=== PATIENT | male | born 1960 | race Caucasian/White ===

== ENCOUNTER 2022-10-02 11:23 | Emergency (ER) | payer BC, SELFPAY ==
[2022-10-02 11:24] VITALS: BP 154/86; PULSE 100; RESP 16; TEMP 36.3; O2SAT 97; BMI 34.2
--- NOTE | 2022-10-02 12:00 | EX.ED.DYSGE1 ---
HPI <CHRISTINE Dickson - Last Filed: 10/02/22 13:01> History of Present Illness Chief Complaint: Cellulitis Narrative Narrative: Patient presenting today with concerns that he has cellulitis to his left lateral lower leg. He reports that last Tuesday he noticed what looks like a bug bite to his left lateral leg. He went to [place] with his family and was swimming in the ocean and on Tuesday noticed that the area was becoming more red, tender, and swollen. He went to urgent care where they prescribed him 300 mg clindamycin 4 times a day for 10 days. Today he noticed that the area has not improved and is becoming more painful and swollen. He called his PCP, Dr. George who advised him to come in for to the emergency department for evaluation. He reports a history of diabetes mellitus. He has not had any fevers or chills. PFSH <CHRISTINE Dickson - Last Filed: 10/02/22 13:01> [facility] Medical History High cholesterol Type II diabetes mellitus Home Medications doxycycline hyclate 100 mg capsule 100 mg PO BID 10 days #19 caps 10/02/22 [Rx Last Taken Unknown] Allergy/AdvReac Type Severity Reaction Status Date / Time No Known Allergies Allergy Verified 10/02/22 11:24 Social History Smoking Status: Never smoker ROS <CHRISTINE Dickson - Last Filed: 10/02/22 13:01> ROS ED Constitutional Constitutional ED: Denies chills or fever(s) Cardiovascular Cardiovascular: Denies chest pain Respiratory/Chest Respiratory/Chest: Denies cough or dyspnea Gastrointestinal Gastrointestinal: Denies abdominal pain, nausea or vomiting Musculoskeletal Musculoskeletal: Denies arthralgias or myalgias Integumentary Denies abscess or rash Neurologic Neurologic: Denies weakness EXAM <CHRISTINE Dickson - Last Filed: 10/02/22 13:01> Physical Exam Const Vital Signs: 10/02/22 11:24 Temperature 97.3 F L Temperature Source Temporal Pulse Rate 100 Respiratory Rate 16 Blood Pressure 154/86 H Blood Pressure Mean 108 Pulse Ox 97 Oxygen Delivery Method Room Air Positive well nourished, well developed and no apparent distress General Appearance ED: well developed HEENT Reports normocephalic and head/scalp atraumatic Mouth ED: Yes moist mucous membranes normal Eyes PERRL and EOMs intact bilaterally Neck full ROM and supple Chest Wall inspection of chest normal Resp normal respiratory effort and clear to auscultation bilaterally Cardio regular rate and regular rhythm GI soft to palpation, non-tender, non-distended and no masses Back/Spine normal ROM and normal to inspection Extremity normal to inspection and full ROM Extremity Narrative: Area of erythema and edema to the left lateral lower leg. Small scabbed wound to the area. There is no abscess. No lymphangitic streaking. Neuro oriented x3, CN's II-XII intact bilaterally, moves all extremities, no focal motor deficits and no sensory deficits noted Sensorium / Orientation: awake and alert Psych mental status grossly normal and thought process normal Skin no rashes or lesions noted and no wounds <Dr. Arnulfo Mendez MD - Last Filed: 10/02/22 12:38> Physical Exam Const Vital Signs: 10/02/22 11:24 Temperature 97.3 F L Temperature Source Temporal Pulse Rate 100 Respiratory Rate 16 Blood Pressure 154/86 H Blood Pressure Mean 108 Pulse Ox 97 Oxygen Delivery Method Room Air MDM <CHRISTINE Dickson - Last Filed: 10/02/22 13:01> [facility] Narrative Medical decision making narrative: Patient presenting today with concerns that his cellulitis has not improved after being on clindamycin since Tuesday. He has an area of cellulitis to his left lateral lower leg without any lymphangitic streaking or abscess formation. Labs obtained and are unremarkable. Given clindamycin does not have great coverage for MRSA in this area, we will change therapy to doxycycline and discontinue the clindamycin. He has been given first dose here and will be discharged home in stable condition. He is to follow-up with his PCP in 3 to 5 days and is to return for any worsening of his condition. He is comfortable with plan. Lab Data Attestation: I reviewed the patient's lab results. Labs: Laboratory Results - last 24 hr 10/02/22 11:55 WBC 8.2 RBC 4.60 Hgb 14.2 Hct 41.9 MCV 91.1 MCH 30.9 MCHC 33.9 RDW Std Deviation 42.5 RDW Coeff of Momo 12.7 Plt Count 202 MPV 9.8 Immature Gran % (Auto) 0.400 Neut % (Auto) 67.6 Lymph % (Auto) 20.0 [place] % (Auto) 9.5 Eos % (Auto) 2.0 Baso % (Auto) 0.5 Absolute Neuts (auto) 5.5 Absolute Lymphs (auto) 1.64 Nucleated RBC % 0 Sodium 135 L Potassium 3.6 Chloride 101 Carbon Dioxide 27.0 Anion Gap 7 BUN 16 Creatinine 0.98 Estim Creat Clear Calc 77.55 Est GFR (MDRD) Af Amer 101 Est GFR (MDRD) Non-Af 83 BUN/Creatinine Ratio 16.4 Glucose 245 H Calcium 8.8 <Dr. Arnulfo Mendez MD - Last Filed: 10/02/22 12:38> [facility] Lab Data Labs: Laboratory Results - last 24 hr 10/02/22 11:55 WBC 8.2 RBC 4.60 Hgb 14.2 Hct 41.9 MCV 91.1 MCH 30.9 MCHC 33.9 RDW Std Deviation 42.5 RDW Coeff of Momo 12.7 Plt Count 202 MPV 9.8 Immature Gran % (Auto) 0.400 Neut % (Auto) 67.6 Lymph % (Auto) 20.0 Jerauld % (Auto) 9.5 Eos % (Auto) 2.0 Baso % (Auto) 0.5 Absolute Neuts (auto) 5.5 Absolute Lymphs (auto) 1.64 Nucleated RBC % 0 Sodium 135 L Potassium 3.6 Chloride 101 Carbon Dioxide 27.0 Anion Gap 7 BUN 16 Creatinine 0.98 Estim Creat Clear Calc 77.55 Est GFR (MDRD) Af Amer 101 Est GFR (MDRD) Non-Af 83 BUN/Creatinine Ratio 16.4 Glucose 245 H Calcium 8.8 Treatment and Re-Evaluation Comments:: Seen and evaluated independently and in conjunction with physician physiotherapy assistant. Agree with notes above unless documented otherwise. Spontaneous onset of a red initially itchy and mostly painful area lateral aspect of his left lower extremity that started 3 to 4 days ago out of town, saw urgent care prescribed clindamycin has been on that for around 72 hours and the redness and pain has been worsening. No systemic symptoms. Exam: Tender not well-circumscribed area of erythema that is warm lateral aspect of the left knee. Is able to range the knee fully without difficulty although it is painful. No lymphangitis. No abscess. No palpable induration. Plan: Clindamycin clearly is not working he has been on it for 3 days. We will change it to better MRSA coverage, our current antibiogram shows Doxy as the best antibiotic for MRSA coverage and since this would cover strep as well, we will have him discontinue clindamycin, we discussed reasons to return but no indication for attempting incision and drainage at this time. Discharge Plan Triage Chief Complaint: Cellulitis ED Midlevel Provider: Tangela Balbuena ED Provider: Arnulfo Mendez Dx/Rx/DC Orders Clinical Impression: Cellulitis Instructions: Cellulitis Dc Prescriptions: New doxycycline hyclate 100 mg capsule 100 mg PO BID 10 Days Qty: 19 0RF Primary Care Provider: Dinesh George Referrals: Dinesh George MD [Primary Care Provider] - 3-5 Days Activity Restrictions/Additional Instructions: Taking antibiotics as directed and follow-up with your PCP in 3 to 5 days. Discontinue the clindamycin. Disposition Disposition: Home, Self Care Discharge Date/Time: 10/02/22 12:38
[2022-10-02 12:06] LABS: Absolute Lymphocyte Count 1.64 X10^3/uL (0.83-4.51); Absolute Neutrophil Count 5.5 X10^3/uL (2.0-7.7); Basophil# 0.04 X10^3/uL; Basophil% 0.5 % (0-1); Eosinophil# 0.16 X10^3/uL; Hematocrit 41.9 % (40-54); Hemoglobin 14.2 g/dL (13.0-16.5); Lymphocyte # 1.64 X10^3/ul (0.83-4.51); Mean Corp Hgb Conc 33.9 g/dL (32-36); Mean Corpuscular Hgb 30.9 pg (27.0-32.0); Mean Corpuscular Volume 91.1 fL (80-94); Mean Platelet Vol. 9.8 fl (6.2-12.0); Monocyte# 0.78 X10^3/uL; Monocyte% 9.5 % (0-10); NRBC Flagged by Analyzer 0 % (0-5); Neutrophil # 5.54 X10^3/uL (2.7-7.7); Neutrophil % 67.6 % (47-70); Platelet Count 202 K/mm3 (150-450); RBC Distribution Width CV 12.7 % (11.6-14.6); RBC Distribution Width SD 42.5 fl (35.1-43.9); White Blood Count 8.2 K/mm3 (4.4-11.0)
[2022-10-02 12:13] LABS: Anion Gap 7 (5-15); BUN 16 mg/dL (7-18); BUN/Creat Ratio 16.4 RATIO (10-20); Calcium,Total 8.8 mg/dL (8.5-10.1); Chloride 101 mmol/L (98-107); Creatinine, Serum 0.98 mg/dL (0.70-1.30); EST Glomerular Filtration Rate 83 mL/min (>60); Est Glom Filt Rate - Afr Amer 101 mL/min (>60); Estimated Creatinine Clearance 77.55 ml/min; Glucose 245 mg/dL (74-106); Potassium 3.6 mmol/L (3.5-5.1); Sodium Level 135 mmol/L (136-145)
[2022-10-02] MEDS: Doxycycline 100 MG CAPSULE PO (12:37)
== END 2022-10-02 12:38 | disposition home or self-care (01) ==
LOC: ED 12:28
PROVIDERS: Physician Assistant; Emergency Provider Emergency Medicine; PCP Family Medicine; Visit Provider Emergency Medicine
DX: L03.116 Cellulitis of left lower limb (principal)
CPT/HCPCS: 80048; 85025; 99283; A4216